=== PATIENT | female | born 1970 | race Two or more races ===

== ENCOUNTER 2018-08-24 20:09 | Inpatient (IN) | payer OTHER ==
[~2018-08-24] VITALS: Ht 154.9 cm; Wt 1.4 kg
== END 2018-08-28 13:40 | DRG 783 ==
LOC: LDR 20:09 → OB/GYN 08-25 13:28
PROVIDERS: ADMIT Specialist
PROC: 4A1HXCZ Monitoring of Products of Conception, Cardiac Rate, External Approach (ICD-10-PCS; 2018-08-24)
PROC: 0UB70ZZ Excision of Bilateral Fallopian Tubes, Open Approach (ICD-10-PCS; 2018-08-25)
PROC: 10D00Z1 Extraction of Products of Conception, Low, Open Approach (ICD-10-PCS; principal; 2018-08-25 09:30)
DX: O32.2XX0 Maternal care for transverse and oblique lie, not applicable or unspecified (principal); O60.14X0 Preterm labor third trimester with preterm delivery third trimester, not applicable or unspecified; O32.1XX0 Maternal care for breech presentation, not applicable or unspecified; O36.5930 Maternal care for other known or suspected poor fetal growth, third trimester, not applicable or unspecified; O24.420 Gestational diabetes mellitus in childbirth, diet controlled; Z3A.34 34 weeks gestation of pregnancy; Z37.0 Single live birth; Z30.2 Encounter for sterilization